=== PATIENT | male | born 1965 | race Caucasian/White ===

== ENCOUNTER 2019-05-09 00:53 | Emergency (ER) | payer OTHER ==
[2019-05-09 00:55] VITALS: TEMP 98.1; BMI 27.8
--- NOTE | 2019-05-09 01:59 | PDOC ---
Documentation entered by Alvina Wiggins SCRIBE, acting as scribe for Danay Quintanilla DO. Danay Quintanilla DO: This documentation has been prepared by the Rosalie bhardwaj Nirvannie, SCRIBE, under my direction and personally reviewed by me in its entirety. I confirm that the documentation accurately reflects all work, treatment, procedures, and medical decision making performed by me. History of Present Illness - General Chief Complaint: Alcohol intoxication Stated Complaint: FALL/INTOX Time Seen by Provider: 05/09/19 01:03 History Source: Patient Exam Limitations: No Limitations - History of Present Illness Initial Comments: 05/09/19 01:18 The patient is a 53 year old male, with a significant past medical history of hypertension and anxiety, who presents to the emergency department s/p fall with alcohol intoxication. As per patient, he drank a lot of beer and tequila then fell. He believes he hit his head but, is unsure. While in the ED, patient is able to give his entire medication list and ambulating with a steady gait. He denies any recent chest pain or shortness of breath. He denies any nausea, vomiting, urinary/bowel symptoms, or headache. Allergies: NKDA Past History - Past Medical History Allergies/Adverse Reactions: Allergies Allergy/AdvReac Type Severity Reaction Status Date / Time No Known Drug Allergies Allergy Verified 05/09/19 00:55 Home Medications: Ambulatory Orders Lorazepam [Ativan] 0.5 mg PO TID PRN 05/10/13 Diltiazem Cd [Cardizem Cd -] 240 mg PO DAILY 11/05/13 Losartan Potassium 25 mg PO HS 02/20/14 Famotidine 10 mg PO DAILY 01/16/16 [place]-3 Fatty Acids/Fish Oil [Fish Oil 1,000 mg Softgel] 1 each PO DAILY Anemia: No Asthma: No Cancer: No Cardiac Disorders: No CVA: No COPD: No CHF: No Dementia: No Diabetes: No GI Disorders: Yes Disorders: No HTN: Yes Hypercholesterolemia: No Liver Disease: No Psychiatric Problems: Yes (PANIC ATTACKS, ANXIETY) Seizures: No Thyroid Disease: No - Surgical History Abdominal Surgery: No Appendectomy: No Cardiac Surgery: No Cholecystectomy: No Lung Surgery: No Neurologic Surgery: No Orthopedic Surgery: No - Psycho Social/Smoking Cessation Hx Smoking History: Never smoked Have you smoked in the past 12 months: No Information on smoking cessation initiated: No Hx Alcohol Use: No Drug/Substance Use Hx: No Substance Use Type: None, Alcohol Hx Substance Use Treatment: No Review of Systems - Review of Systems Able to Perform ROS?: Yes Comments:: 05/09/19 01:20 GENERAL/CONSTITUTIONAL: +Alcohol intoxication. No fever or chills. No weakness. HEAD, EYES, EARS, NOSE AND THROAT: No change in vision. No ear pain or discharge. No sore throat. GASTROINTESTINAL: No nausea, vomiting, diarrhea or constipation. GENITOURINARY: No dysuria, frequency, or change in urination. CARDIOVASCULAR: No chest pain or shortness of breath. RESPIRATORY: No cough, wheezing, or hemoptysis. MUSCULOSKELETAL: No joint or muscle swelling or pain. No neck or back pain. SKIN: No rash NEUROLOGIC: No headache, vertigo, loss of consciousness, or change in strength/ sensation. ENDOCRINE: No increased thirst. No abnormal weight change. HEMATOLOGIC/LYMPHATIC: No anemia, easy bleeding, or history of blood clots. ALLERGIC/IMMUNOLOGIC: No hives or skin allergy. All Other Systems: Reviewed and Negative *Physical Exam - Vital Signs Last Vital Signs Temp Pulse Resp BP Pulse Ox 98.1 F 94 H 18 120/84 98 05/09/19 00:53 05/09/19 00:53 05/09/19 00:53 05/09/19 00:53 05/09/19 00:53 - Physical Exam 05/09/19 01:20 GENERAL: Awake, in no acute distress HEAD: No signs of trauma EYES: PERRLA, EOMI, sclera anicteric, conjunctiva clear, visual acuity grossly intact ENT: Moist mucosa NECK: Normal ROM, supple, no lymphadenopathy or JVD. LUNGS: Breath sounds equal, clear to auscultation bilaterally. No wheezes, and no crackles. Normal work of breathing. HEART: Regular rate and rhythm, normal S1 and S2, no murmurs, rubs or gallops ABDOMEN: Soft, nontender, normoactive bowel sounds. No guarding. Non- distended. BACK: No midline tenderness. EXTREMITIES: Normal range of motion, no edema. No clubbing or cyanosis. No erythema, or tenderness NEUROLOGICAL: Alert, and oriented x4, Nonfocal. Ambulating with a steady gait. SKIN: Warm, Dry, normal turgor, no rashes or lesions noted. ED Treatment Course - RADIOLOGY Radiology Studies Ordered: Category Date Time Status CERVICAL SPINE CT W/O CONTR [CT] Stat CT Scan 05/09/19 01:[address] WITHOUT CONTRAST [CT] Stat CT Scan 05/09/19 01:09 Taken Radiograph Interpretation: 05/09/19 01:52 EXAM: HEAD CT WITHOUT CONTRAST HISTORY: Trauma COMPARISON: None. FINDINGS: No evidence of hemorrhage, acute territorial infarction, mass effect, midline shift, hydrocephalus, or extra-axial collections. No hyperdense arterial or venous sign Mild left sphenoid sinus mucoperiosteal thickening The left frontal sinus is not developed Status post bilateral cataract surgery Leftward deviation of the nasal septum The calvarium is intact. IMPRESSION: 1. No acute intracranial process 2. No skull fracture One or more of the following dose reduction techniques were used: automated exposure control, adjustment of the mA and/or kV according to patient size, use of iterative reconstructive technique. Read by: Husam Willson MD EXAM: CERVICAL SPINE CT W/O CONTR HISTORY: Trauma COMPARISON: None. FINDINGS: Straightening of the normal physiologic curvature of the cervical spine that is either due to muscle spasm or patient positioning. No fractures, subluxations, or jumped facets No prevertebral soft tissue swelling Calcified bilateral thyroid nodules Mild cervical spondylosis The lung apices are clear. IMPRESSION: 1. No acute cervical spine injury One or more of the following dose reduction techniques were used: automated exposure control, adjustment of the mA and/or kV according to patient size, use of iterative reconstructive technique. Read by: Husam Willson MD Medical Decision Making - Medical Decision Making 05/09/19 01:55 53-year-old male with admitted alcohol use tonight status post fall, 911 called by police Patient arrives stating he may have hit his head, alert and oriented x4 with steady gait with no complaints He was initially offered labs and EKG which he is refusing stating he just wants to go home CT scan of the head and cervical spine are negative for acute traumatic injury Patient is currently sleeping, will DC shortly. Discharge - Discharge Information Problems reviewed: Yes Clinical Impression/Diagnosis: Fall, Alcohol use Condition: Stable Disposition: HOME - Admission No - Follow up/Referral Referrals: Zenon Kim MD [Staff Physician] - - Patient Discharge Instructions Patient Printed Discharge Instructions: DI for Alcohol Abuse - Post Discharge Activity
[2019-05-09 05:36] VITALS: BP 123/81; PULSE 73
== END 2019-05-09 05:37 | disposition home or self-care (01) ==
LOC: JER 00:53
DX: Z04.3 Encounter for examination and observation following other accident (principal); F10.99 Alcohol use, unspecified with unspecified alcohol-induced disorder; I10 Essential (primary) hypertension; F41.9 Anxiety disorder, unspecified
CPT/HCPCS: 70450-TC; 72125-TC; 99285-25

== ENCOUNTER 2020-03-15 15:56 | Emergency (ER) | payer BC, OTHER ==
[2020-03-15 16:35] VITALS: BP 145/85; PULSE 95; BMI 26.4
[2020-03-15] MEDS ORDERED: DIPHTH,PERTUSS(ACELL),TET 0.5 ML DISP.SYRIN IM ONE ×2 (17:40→17:41)
== END 2020-03-15 18:30 | disposition home or self-care (01) ==
LOC: JERFT 15:56
PROC: 0JQ10ZZ Repair Face Subcutaneous Tissue and Fascia, Open Approach (ICD-10-PCS; principal; 2020-03-15)
PROC: 3E0234Z Introduction of Serum, Toxoid and Vaccine into Muscle, Percutaneous Approach (ICD-10-PCS; 2020-03-15)
DX: S01.81XA Laceration without foreign body of other part of head, initial encounter (principal); W19.XXXA Unspecified fall, initial encounter
CPT/HCPCS: 71046-TC-FY; 71101-TC-RT-FY; 90715; 99284-25

== ENCOUNTER 2020-03-22 10:02 | Emergency (ER) | payer BC, OTHER | END 2020-03-22 11:36 | disposition home or self-care (01) | LOC: JERFT 10:02 | DX: Z48.02 Encounter for removal of sutures (principal) | CPT/HCPCS: 99281-25 ==

== ENCOUNTER 2020-08-04 07:37 | Emergency (ER) | payer BC, OTHER ==
[2020-08-04 07:49] VITALS: BP 132/85; PULSE 98; TEMP 99.2; BMI 27.9
== END 2020-08-04 08:42 | disposition home or self-care (01) ==
LOC: JER 07:37
DX: H10.32 Unspecified acute conjunctivitis, left eye (principal)
CPT/HCPCS: 99283-25

== ENCOUNTER 2021-09-20 09:13 | Emergency (ER) | payer OTHER ==
[2021-09-20 09:17] VITALS: BP 147/86; PULSE 115; TEMP 97; BMI 27.1
== END 2021-09-20 10:11 | disposition home or self-care (01) ==
LOC: JERFT 09:13
DX: H10.31 Unspecified acute conjunctivitis, right eye (principal)
CPT/HCPCS: 99281-25